=== PATIENT | male | born 1945 | race Caucasian/White ===

== ENCOUNTER → 2016-06-12 | Outpatient (CLI) | payer MEDICARE ==
--- NOTE | ~2016-06-12 | MR113 ---
[facility] A Service of [facility] & [facility] RADIOLOGY TEXT RESULTS PATIENT: HARVINDER SPAULDING LOCATION: [facility] : 41 UNIT #: [id number] AGE: [address]: Manuel Lala MD SEX: M ORDER DR: [id number] [place] [id number] MR#: [id number] Acc #: [id number] NAME: HARVINDER SPAULDING : 1945 SEX: M STUDY DATE/TIME: 06/12/2016 12:02 UNIT: [facility] ROOM: STUDY DESCRIPTION: MR Lumbar Wo Contrast Attending Physician: Manuel Lala M.D. Referring Physician: Manuel Lala M.D. Ordering Physician: Manule Lala M.D. Primary Care Physician: Alma King M.D. MRI CENTER REPORT This report is preliminary unless electronic signature is present. EXAM Lumbar MRI 06/12/2016 HISTORY Chronic low back pain with no new trauma. Pain worse sitting, standing and walking with worsening of symptoms over the past 3-4 months. TECHNIQUE Multiplanar imaging of the lumbar spine was performed with short and long TR and compared to previous scan dated 05/23/2014 FINDINGS There appear to be only 4 lumbar-type vertebrae. At T12-L1 there is mild desiccation of the disc without bulging or herniation and the canal and foramina are widely patent. At L1-L2 the disc is desiccated and there is mild concentric disc bulging with moderate bilateral facet hypertrophy. Central spinal stenosis is moderate. Foraminal stenosis is mild bilaterally. Degenerative disc disease has progressed slightly since the previous scan. At L2-L3 there is broad-based posterior disc bulging with disc space narrowing. Central stenosis is moderately severe. Facet hypertrophy is present to a moderate degree. Foraminal narrowing is moderate bilaterally. No significant progression since the previous scan. At L3-L4 there is mild concentric disc bulging with moderate bilateral facet hypertrophy and moderate central stenosis. This has not changed significantly since the previous exam. Foraminal narrowing is moderate bilaterally and greater on the right than on the left also unchanged. At L4-S1 there is a grade 1 spondylolisthesis with degenerative disc [facility]S. [facility] A Service of [facility] & [facility] RADIOLOGY TEXT RESULTS PATIENT: HARVINDER SPAULDING LOCATION: [facility] : 41 UNIT #: [id number] AGE: [address]: Manuel Lala MD SEX: M ORDER DR: disease and the bilateral pars defects. Central stenosis is moderate. There is advanced bilateral facet hypertrophy. Foraminal stenosis is severe on both sides. This is unchanged. Conus is normal. There is no evidence of marrow edema or paraspinous mass. IMPRESSION There are only 4 true lumbar-type vertebrae. Multilevel degenerative disc and facet disease is seen as described above level by level with multilevel spondylosis. Central spinal stenosis is most prominent at L2-3. It is unchanged at this level since the previous exam. There is no evidence of any new disc herniation. Foraminal stenosis is most prominent bilaterally at L4-S1 with bilateral pars defects at L4 and a grade 1 spondylolisthesis. Central stenosis has worsened slightly at L1-2 since the previous examination and has remained unchanged elsewhere. Please note that the numbering criteria is different by 1 level compared to the previous report. On the previous examination the T12 ribs were not definitely seen and it was numbered as if there were 5 lumbar vertebrae. Numbering should be correlated with plain films. Dictated by... Ole Wiggins M.D. THIS IS AN ELECTRONICALLY VERIFIED REPORT Ole Wiggins M.D. at 06/12/2016 6:31 PM Shruti TD: 06/12/2016 16:47 JOB #: [id number] MRI CENTER REPORT Page 1 of 1
== END | disposition home or self-care (01) ==
LOC: SMRI 11:28
DX: M48.06 Spinal stenosis, lumbar region (principal); M43.16 Spondylolisthesis, lumbar region; M51.36 Other intervertebral disc degeneration, lumbar region; M47.816 Spondylosis without myelopathy or radiculopathy, lumbar region
CPT/HCPCS: 72148